=== PATIENT | female | born 1955 | race African-American/Black ===

== ENCOUNTER 2017-09-03 15:14 | Emergency (ER) | payer MEDICARE, MEDICAID ==
[~2017-09-03] VITALS: Ht 170.2 cm; Wt 61.2 kg
[2017-09-03 15:29] VITALS: BP 183/65
[2017-09-03 16:18] LABS: Albumin 3.9 g/dL (3.4-5.0); Anion Gap 9 (5-15); Aspartate Aminotransferase 16 U/L (15-37); BUN/Creatinine Ratio 11.1; Basophils # (auto) 0.1 uL; Basophils % (auto) 1.1 % (0.0-2.0); Blood Urea Nitrogen 7 mg/dL (7-18); Calcium 9.3 mg/dL (8.5-10.1); Carbon Dioxide 24 mmol/L (21-32); Chloride 108 mmol/L (98-107); Eosinophils # (auto) 0 uL; Eosinophils % (auto) 0.5 % (0.0-7.0); GFR African American 123 mL/min; GFR Non-African American 102 mL/min; Glucose 96 mg/dL (74-106); Hemoglobin 13.3 g/dL (12.2-16.2); Lymphocytes # (auto) 2.1 uL; Mean Corpuscular Hemoglobin 28.2 pg (28.0-32.0); Mean Corpuscular Hgb Conc. 33.2 g/dL (32.0-36.0); Mean Corpuscular Volume 84.9 fL (80.0-100.0); Mean Platelet Volume 9.3 fL (6.9-10.8); Monocytes # (auto) 0.2 uL; Monocytes % (auto) 4.3 % (0.0-12.0); Neutrophils # (auto) 2.4 uL; Neutrophils % (auto) 50.1 % (37.0-80.0); Nucleated Red Blood Cells % 0.2 %; Platelet Count (auto) 300 10^3/uL (140-450); Potassium 3.7 mmol/L (3.5-5.1); Red Cell Distribution Width 13.9 % (11.8-14.3); Sodium 141 mmol/L (136-145); White Blood Cell 4.9 10^3/uL (4.4-10.8)
[2017-09-03 16:22] LABS: Alkaline Phosphatase 157 U/L (45-117); Bilirubin, Total 0.4 mg/dL (0.2-1.0); Total Protein 7.5 g/dL (6.4-8.2)
== END 2017-09-03 21:44 | disposition left against medical advice (07) ==
LOC: ER 15:14
DX: M54.9 Dorsalgia, unspecified (principal); R07.9 Chest pain, unspecified; Z53.21 Procedure and treatment not carried out due to patient leaving prior to being seen by health care provider
CPT/HCPCS: 36415; 71020; 80053; 84484; 85025; 93005